=== PATIENT | female | born 1950 | race Hispanic/Latino ===

== ENCOUNTER 2021-09-07 16:00 | Emergency (ER) | payer OTHER ==
[~2021-09-07] VITALS: Ht 149.9 cm; Wt 95.3 kg
[2021-09-07] MEDS ORDERED: LORAZEPAM 1 MG TABLET PO ONE (16:30)
[2021-09-07 17:11] LABS: BASOPHILS % (AUTO) 0.7 % (0.0-5.0); EOSINOPHILS % (AUTO) 0.6 % (0.0-8.0); HEMATOCRIT 38.6 % (36-48); LYMPHOCYTES % (AUTO) 16.6 % (21.0-51.0); MEAN CORPUSCULAR HEMOGLOBIN 29.6 pg (27.0-33.0); MEAN CORPUSCULAR HGB CONC 33.2 g/dL (32.0-36.0); MEAN CORPUSCULAR VOLUME 89.1 fL (79-99); MONOCYTES % (AUTO) 6.7 % (3.0-13.0); NEUTROPHILS % (AUTO) 74.9 % (40.0-77.0); PLATELET COUNT (AUTO) 244 K/uL (130-400); RED BLOOD CELL COUNT(AUTO) 4.33 MIL/uL (4.00-5.50); RED CELL DISTRIBUTION WIDTH 12.3 % (11.0-15.5); WHITE BLOOD COUNT (AUTO) 8.8 K/uL (4.8-10.8)
[2021-09-07 17:23] LABS: POTASSIUM 4.1 mmol/L (3.5-5.1)
[2021-09-07 17:28] LABS: ALBUMIN 3.6 g/dL (3.5-5.0); BILIRUBIN,TOTAL 0.6 mg/dL (0.2-1.0); TOTAL PROTEIN, SERUM 7.3 g/dL (6.0-8.3)
[2021-09-07 17:37] LABS: APPEARANCE,URINE Cloudy (CLEAR); BILIRUBIN,URINE Negative (NEGATIVE); COLOR,URINE Dark Yellow (YELLOW); GLUCOSE, URINE (UA) 500 mg/dL (NEGATIVE); KETONES,URINE 15 mg/dL (NEGATIVE); LEUKOCYTE ESTERASE ,URINE Small (NEGATIVE); NITRATE,URINE Negative (NEGATIVE); OCCULT BLOOD,URINE Negative (NEGATIVE); PH,URINE 5.5 (5.0-8.0); PROTEIN,URINE POS 1+ mg/dL (NEGATIVE)
[2021-09-07 18:00] LABS: MUCUS,URINE Many LPF (None Seen)
[2021-09-07 18:01] LABS: SQUAMOUS EPITHELIAL CELL,UR 30-50 /HPF (0-2)
[2021-09-07 18:02] LABS: FINE GRANULAR CASTS,URINE 0-2 /LPF (None Seen)
[2021-09-07 18:04] LABS: BACTERIA,URINE Moderate /HPF (None Seen); YEAST,URINE BUDDING Few /HPF (None Seen)
[2021-09-07 18:05] LABS: RBC,URINE 0-1 /HPF (0-1)
[2021-09-07] MEDS ORDERED: INSULIN HUMULIN R 100 UNIT/ML 3ML SQ ONE (18:30)
[2021-09-07] MEDS ORDERED: CEFTRIAXONE 1G VIAL IVP ONE (18:30)
[2021-09-07] MEDS ORDERED: 0.9%NACL 1000ML 1,000 ML IV ONE (18:30)
[2021-09-07] MEDS ORDERED: HYD25 PO (18:46)
[2021-09-07] MEDS ORDERED: CEPH500B PO (18:46)
[2021-09-07 18:48] VITALS: BP 123/69
== END 2021-09-07 18:53 | disposition home or self-care (01) ==
LOC: EDH 16:00
DX: N39.0 Urinary tract infection, site not specified (principal); R00.2 Palpitations; E11.65 Type 2 diabetes mellitus with hyperglycemia; F41.9 Anxiety disorder, unspecified; I10 Essential (primary) hypertension
CPT/HCPCS: 36415; 71045; 80053; 81001; 82948; 84484; 85025; 87088; 93005; 96361; 96374; 99285; J0696; J1815; J7030; 96372

== ENCOUNTER 2024-03-23 14:07 | Emergency (ER) | payer OTHER ==
[~2024-03-23] VITALS: Ht 149.9 cm; Wt 82.6 kg
[~2024-03-23 14:07] MED LIST: CEPH500B PO; HYD25 PO
[2024-03-23] MEDS: LORAZEPAM 2 MG/ML 1 ML VIAL IVP ONE (14:56)
[2024-03-23 15:00] LABS: BASOPHILS # (AUTO) 0.04 K/uL (0.00-0.20); BASOPHILS % (AUTO) 0.5 % (0.0-5.0); EOSINOPHILS # (AUTO) 0.11 K/uL (0.00-0.70); EOSINOPHILS % (AUTO) 1.4 % (0.0-8.0); HEMATOCRIT 36.4 % (36-48); IMMATURE GRANULOCYTE ABSOLUTE 0.03 K/uL (0-1); LYMPHOCYTES # (AUTO) 1.5 K/uL (1.0-4.8); LYMPHOCYTES % (AUTO) 20.2 % (21.0-51.0); MEAN CORPUSCULAR HEMOGLOBIN 29.7 pg (27.0-33.0); MEAN CORPUSCULAR HGB CONC 34.1 g/dL (32.0-36.0); MEAN CORPUSCULAR VOLUME 87.3 fL (79-99); MONOCYTES # (AUTO) 0.5 K/uL (0.1-1.0); MONOCYTES % (AUTO) 6.3 % (3.0-13.0); NEUTROPHILS # (AUTO) 5.4 K/uL (1.8-7.7); NEUTROPHILS % (AUTO) 71.2 % (40.0-77.0); PLATELET COUNT (AUTO) 196 K/uL (130-400); RED BLOOD CELL COUNT(AUTO) 4.17 MIL/uL (4.00-5.50); RED CELL DISTRIBUTION WIDTH 12.6 % (11.0-15.5); WHITE BLOOD COUNT (AUTO) 7.6 K/uL (4.8-10.8)
[2024-03-23 15:08] LABS: CREATININE 0.6 mg/dL (0.5-1.0); POTASSIUM 3.8 mmol/L (3.5-5.1)
[2024-03-23 16:43] VITALS: BP 131/72; PULSE 62; RESP 17; O2SAT 96
== END 2024-03-23 16:49 | disposition home or self-care (01) ==
LOC: EDH 14:07
DX: F41.9 Anxiety disorder, unspecified (principal); R00.2 Palpitations; I10 Essential (primary) hypertension; E11.9 Type 2 diabetes mellitus without complications; E78.00 Pure hypercholesterolemia, unspecified; Z79.899 Other long term (current) drug therapy; Z98.890 Other specified postprocedural states
CPT/HCPCS: 99284; 96374; 84484; 80048; 85025; 36415; 93005; J2060